=== PATIENT | male | born 1980 | race Caucasian/White ===

== ENCOUNTER 2020-09-23 10:15 | Emergency (ER) | payer OTHER, SELFPAY ==
[2020-09-23 10:50] VITALS: BP 145/96; PULSE 90; RESP 18; TEMP 36.6; O2SAT 98; O2SAT 99
--- NOTE | 2020-09-23 11:20 | ED.URI ---
HPI - URI/Sore Throat General Chief Complaint: Upper Respiratory Infection Stated Complaint: wants covid test/exposed Time Seen by Provider: 09/23/20 11:08 Source: patient Mode of arrival: ambulatory Limitations: no limitations History of Present Illness HPI Narrative: This is a 40-year-old male that presents to the emergency department for positive Covid exposure. Reports he was exposed to somebody that he works closely with. This was 4 days ago. Reports when he woke up this morning he felt achy. Also reports mild fatigue and rhinorrhea. Reports a cough, but this is chronic as he is a smoker. Denies fever, chest pain, shortness of breath. Related Data Home Medications Medication Instructions Recorded Confirmed No Home Medications 09/23/20 09/23/20 Allergies Allergy/AdvReac Type Severity Reaction Status Date / Time No Known Drug Allergies Allergy Unknown Unverified 11/07/15 14:18 Review of Systems Review of Systems: Narrative: CONSTITUTIONAL: Denies fever, chills ENT: Reports rhinorrhea. Denies congestion, sore throat, or otalgia. CARDIOVASCULAR: Denies chest pain RESPIRATORY: Reports cough. Denies dyspnea. MUSCULOSKELETAL: Reports myalgia. All systems reviewed & are unremarkable except as noted in HPI and below PMFSH Past Medical History Medical History (Updated 09/23/20 @ 12:33 by Helena Ruffin PA-C) No active medical problems Social History Social History (Updated 09/23/20 @ 11:21 by Helena Ruffin PA-C) Smoking status: Current every day smoker Gender identity (if verbalized by the patient): Male Exam Narrative: Exam Narrative: GENERAL: Well-appearing, well-nourished, and in no acute distress. HEAD: Normocephalic, atraumatic. EYES: EOMI. ENT: Nares clear, no rhinorrhea or epistaxis. Mucous membranes moist. Oropharynx without tonsillar hypertrophy exudate or other lesions. Bilateral TMs pearly quinones non-bulging NECK: Supple. No adenopathy or masses. CHEST: Clear to auscultation. No respiratory distress. No wheezes rales or rhonchi HEART: Regular rate and rhythm. No murmur heard. Normal peripheral pulses. EXTREMITIES: Normal range of motion. No edema. SKIN: Warm, dry, no rash. NEURO: No focal deficits. Alert and oriented x3. PSYCH: Normal mood and affect Course Vital Signs Vital signs: Vital Signs Temperature 97.8 F 09/23/20 10:50 Pulse Rate 90 09/23/20 10:50 Respiratory Rate 18 09/23/20 10:50 Blood Pressure 145/96 H 09/23/20 10:50 Pulse Oximetry 98 09/23/20 10:50 Temperature 97.8 F 09/23/20 10:50 Pulse Rate 78 09/23/20 12:07 Respiratory Rate 16 09/23/20 12:07 Blood Pressure 116/75 09/23/20 12:07 Pulse Oximetry 99 09/23/20 12:07 MDM - URI/Sore Throat MDM Narrative Medical decision making narrative: Patient presents the emergency department for Covid exposure 4 days ago. He is afebrile and nontoxic-appearing. Exam is benign. Oxygen saturation is remained normal on room air. He reported some mild symptoms upon awakening today which prompted him to be seen. Influenza screen is negative. SARS-CoV-2 was sent. Patient is stable and felt appropriate for further outpatient evaluation. Patient was instructed on care of viral infection. He is to follow-up with primary care doctor. He was given warnings to return to the ER Lab Data Attestation: I reviewed the patient's lab results. Labs: Lab Results 09/23/20 Range/Units 12:01 SARS-CoV-2 RNA (RT-PCR) Pending Influenza A Screen Negative Reference Range: Negative Influenza B Screen Negative Reference Range: Negative Critical Care Time Critical Care Time Critical Care Time: No Discharge Plan Discharge Clinical Impression: Person under investigation for severe acute respiratory syndrome coronavirus 2 (SARS-CoV-2) infection Patient Disposition: Home
[2020-09-23 12:07] VITALS: BP 116/75; PULSE 78; RESP 16; O2SAT 99
[2020-09-23 20:38] LABS: SARS-CoV-2 RNA PCR Negative
== END 2020-09-23 12:42 | disposition home or self-care (01) ==
PROVIDERS: Physician Assistant; Emergency Provider Family Medicine
DX: R53.83 Other fatigue (principal); J34.89 Other specified disorders of nose and nasal sinuses; Z20.822 Contact with and (suspected) exposure to COVID-19; F17.200 Nicotine dependence, unspecified, uncomplicated
CPT/HCPCS: 87804; 99283; C9803; U0003; U0005

== ENCOUNTER 2020-10-20 10:15 | Emergency (ER) | payer OTHER, SELFPAY ==
--- NOTE | ~2020-10-20 | XR_ITS ---
XR shoulder LT min 2V DATE: 10/20/2020 10:50 INDICATION: Straining injury. Pain at the superior aspect of the left shoulder. TECHNIQUE: 4 views COMPARISON: None FINDINGS: No fracture or dislocation, periosteal reaction or bone destruction or abnormal soft tissue calcification. Normal alignment at the acromioclavicular and glenohumeral joints. IMPRESSION: Negative Reviewed, dictated and finalized at location B. IMPRESSION: Negative
[2020-10-20 10:38] VITALS: BP 154/98; PULSE 105; RESP 16; TEMP 37.1; O2SAT 100
--- NOTE | 2020-10-20 11:02 | ED.GENADULT ---
HPI - General Adult General Chief complaint: Extremity Injury, Upper Stated complaint: LEFT SHOULDER PAIN Time Seen by Provider: 10/20/20 11:02 Source: patient and RN notes reviewed Mode of arrival: ambulatory Limitations: no limitations History of Present Illness HPI narrative: 40-year-old male presents with complaints of left shoulder pain after heavy lifting at work for the past 2 days. Vic reports left shoulder pain increases with activity. No treatment. Denies numbness or tingling. Hurts with movement of shoulder. Denies radiating pain. No loss of mobility. No swelling. Exacerbating factor is movement. Relieving factor is rest. The dominant hand is the RIGHT HAND. Remains active. The patient reports he have not been diagnosed with COVID-19. The patient reports he is not waiting for the results of a COVID-19 lab test. The patient reports he do not have fever, chills, weakness, or fatigue. The patient reports he do not have a new or worsening cough or shortness of breath. Denies chest pain. The patient reports he do not have any rhinorrhea, congestion, loss of taste or smell, sore throat, nausea, vomiting, abdominal pain, and diarrhea. Tolerating po intake well. Denies recent traveling. Denies concerns for COVID-19 or exposures been home with limited outdoor exposure except for essential household needs, work, and return home. At this time, patient is not suspected of having COVID-19. Some parts of this dictation were generated by voice recognition software and may contain typographical and/or grammatical inaccuracies. Related Data Home Medications Medication Instructions Recorded Confirmed ibuprofen 200 mg PO Q6H PRN 10/20/20 10/20/20 Allergies Allergy/AdvReac Type Severity Reaction Status Date / Time No Known Allergies Allergy Verified 10/20/20 11:11 Review of Systems Review of Systems: Narrative: CONSTITUTIONAL: Denies fever, chills, sweats. EYES: Denies visual changes, redness, discharge. ENT: Denies rhinorrhea, congestion, sore throat, otalgia. CARDIOVASCULAR: Denies chest pain, palpitations, edema. RESPIRATORY: Denies dyspnea, wheezing, cough. GASTROINTESTINAL: Denies abdominal pain, nausea, vomiting, diarrhea. SKIN: Denies rash or itching. MUSCULOSKELETAL: Denies acute back pain or myalgia. Complains of LT shoulder pain. NEUROLOGIC: Denies numbness or focal weakness. PSYCHIATRIC: Denies anxiety or depression. All other systems reviewed & are unremarkable except as noted in HPI and below. [facility] Past Medical History Medical History (Updated 10/24/20 @ 03:05 by ALVARO Kennedy) Tear of meniscus of left knee Surgical History Surgical History (Updated 10/20/20 @ 11:11 by ALVARO Kennedy) History of knee surgery Left -ACL and meniscus repair Family History Family History (Updated 10/20/20 @ 11:12 by ALVARO Kennedy) Father , Related to complications of diabetes Diabetes mellitus Mother Alive and well Social History Social History (Updated 10/20/20 @ 11:12 by ALVARO Kennedy) Smoking packs per day: 1 Smoking cigarettes per day: 20.0 Years smoked: 30 Smoking pack-years: 30.00 Smoking status: Current every day smoker Tobacco type: cigarettes Second hand tobacco smoke exposure: No Alcohol intake: current Substance use: never Living arrangements: with family Occupation/Education: occupation Gender identity (if verbalized by the patient): Male Comments At time of signature, agree with nurse past medical, surgical, social, and family history. There is no relevant family history pertinent to the presenting complaint. Exam Narrative: Exam Narrative: GENERAL: This is a well-nourished, well-developed patient, in no apparent distress. Talks in full sentences and ambulates with steady gait without dyspnea. HEAD: Normocephalic, atraumatic. EYES: PERRL. Sclera clear/white. Vision is grossly intact. THROAT: M
[2020-10-20 11:34] VITALS: BP 152/95; PULSE 88; RESP 20; O2SAT 99
== END 2020-10-20 11:36 | disposition home or self-care (01) ==
PROVIDERS: Emergency Provider Nurse Practitioner Family
DX: S43.402A Unspecified sprain of left shoulder joint, initial encounter (principal); X50.0XXA Overexertion from strenuous movement or load, initial encounter; Y99.0 Civilian activity done for income or pay; F17.210 Nicotine dependence, cigarettes, uncomplicated
CPT/HCPCS: 73030; 99213; G0463

== ENCOUNTER 2020-12-20 12:36 | Emergency (ER) | payer OTHER, SELFPAY ==
[2020-12-20 12:47] VITALS: BP 152/98; PULSE 94; RESP 18; TEMP 36.6; O2SAT 99
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
== END 2020-12-20 13:27 | disposition home or self-care (01) ==
PROVIDERS: Emergency Provider Nurse Practitioner
DX: S30.1XXA Contusion of abdominal wall, initial encounter (principal); S39.012A Strain of muscle, fascia and tendon of lower back, initial encounter; X58.XXXA Exposure to other specified factors, initial encounter; F17.210 Nicotine dependence, cigarettes, uncomplicated
CPT/HCPCS: 99213; G0463

== ENCOUNTER 2022-02-09 04:29 | Emergency (ER) | payer OTHER, SELFPAY ==
--- NOTE | ~2022-02-09 | CT_ITS ---
EXAMINATION: CT abdomen pelvis w con DATE: 02/09/2022 06:15 INDICATION: Generalized abdominal pain. TECHNIQUE: Computed tomography (CT) of the abdomen and pelvis was performed with 100 mL Omnipaque 300 intravenous contrast. Automated exposure control and iterative reconstruction technique were employe d. The dose-length product was 974.19 mGy-cm. COMPARISON: None. FINDINGS: The visualized portions of the lung bases demonstrate mild atelectasis. No pleural effusion . The heart size is normal. No pericardial effusion. There is diffuse hepatic steatosis. The gallblad slick, spleen, pancreas, adrenal glands, and right kidney are normal. There is a 15 mm cyst in left kid scotty. There is diverticulosis of the colon without evidence of diverticulitis. There are no dilated lo ops of bowel. The appendix is normal. There are no pathologically enlarged lymph nodes. There is no f ree intraperitoneal fluid. There is mild thoracolumbar spondylosis. IMPRESSION: 1. Diffuse hepatic steatosis. Reviewed, dictated and finalized at location A.
[2022-02-09 04:31] VITALS: BP 164/100; PULSE 54; RESP 16; TEMP 36.7; O2SAT 99
--- NOTE | 2022-02-09 05:31 | PC.NURSE ---
This RN tried to call pharmacy for morphine becuase ER pyxis out.
[2022-02-09 05:39] LABS: Basophils Absolute Auto 0.1 K/mm3 (0.0-0.1); Basophils Percent Auto 0.4 % (0.2-1.2); Eosinophils Percent Auto 0.4 % (0-4.4); Hematocrit 45.2 % (42.0-52.0); Hemoglobin 15.8 g/dL (14.0-18.0); Immature Granulocyte Absolute 0.08 K/mm3 (0.00-0.031); Immature Granulocyte Percent A 0.7 % (0-0.5); Lymphocytes Absolute Auto 0.92 K/mm3 (0.9-3.2); Lymphocytes Percent Auto 8.2 % (18.3-44.2); Mean Corpuscular Volume 91.7 fl (80-100); Monocytes Absolute Auto 0.6 K/mm3 (0.1-0.6); Monocytes Percent Auto 5.4 % (2.6-8.5); Neutrophils Absolute Auto 9.5 K/mm3 (1.3-6.7); Neutrophils Percent Auto 84.9 % (45.5-73.1); Platelet Count Result 208 k/mm3 (150-375); Red Blood Count 4.93 M/mm3 (4.6-6.20); Red Cell Distribution Width 12.9 % (11.5-14.5); White Blood Count 11.2 K/mm3 (4.5-10.0)
[2022-02-09 05:43] LABS: Appearance Urine Slightly Cloudy (Clear); Bilirubin Urine Negative (Negative); Blood Urine Negative (Negative); Color Urine Yellow (Yellow); Glucose Urine UA Negative (Negative); Ketones Urine Negative (Negative); Leukocyte Esterase Ur Negative LEU/UL (Negative); Nitrate Urine Negative (Negative); Protein Urine Negative (Negative); Specific Grav Ur >= 1.030 (1.001-1.035); Urobilinogen Urine 0.2 mg/dL (<2.0); pH Urine 5.5 (5.0-9.0)
[2022-02-09 05:48] LABS: Alanine Aminotransferase 54 U/L (6-50); Albumin Level 4.4 g/dL (3.5-5.1); Alkaline Phosphatase 78 U/L (38-126); Anion Gap 4 mmol/L (8-16); Aspartate Amino Transferase 30 U/L (17-59); Bilirubin,Total 0.2 mg/dL (0.2-1.3); Blood Urea Nitrogen 11 mg/dL (9-20); Calcium 8.6 mg/dL (8.4-10.2); Carbon Dioxide 27 mmol/L (22-30); Chloride 105 mmol/L (98-107); Estimated CRCL calculation 108 ml/min; Estimated Glomerular Filt Rate > 60; Glucose 167 mg/dL (65-110); Lipase 47 U/L (23-300); Mucus Urine Rare /lpf; Potassium 4.4 mmol/L (3.4-5.0); RBC Urine 0-2 /hpf (0-2); Sodium 136 mmol/L (137-145); Squamous Epithelial Cell Urine Rare /hpf (Few); WBC Urine 0-3 /hpf
[2022-02-09 05:53] LABS: Add Urine Microscopic? YES
--- NOTE | 2022-02-09 06:03 | ED.ABDPAIN ---
HPI - Abdominal Pain General Chief Complaint: Abdominal Pain Stated Complaint: ABD Pain Time Seen by Provider: 02/09/22 04:54 History of Present Illness HPI narrative: Patient is a 41-year-old male who presents ER with abdominal pain. Lower radiating to his back on both sides. No nausea or vomiting. No urinary frequency urgency or dysuria. Reports it feels like he needs to have a bowel movement but he cannot. He has been straining. Last bowel movement was just yesterday and was unremarkable. Related Data Allergies Allergy/AdvReac Type Severity Reaction Status Date / Time No Known Allergies Allergy Verified 02/09/22 04:33 Review of Systems Review of Systems: All systems reviewed & are unremarkable except as noted in HPI and below Constitutional: Constitutional: Denies chills, Denies fatigue and Denies fever(s) ENT: Denies nasal congestion and Denies sore throat Cardiovascular: Cardiovascular: Denies chest pain, Denies rapid heart rate and Denies radiating jaw, neck or arm pain Gastrointestinal: Gastrointestinal: Reports abdominal pain, Reports constipation, Denies nausea and Denies vomiting Genitourinary: Genitourinary: Denies oliguria, Denies dysuria and Denies urinary frequency PMFSH Past Medical History Medical History (Updated 02/09/22 @ 06:48 by Logan Tan MD) Tear of meniscus of left knee Surgical History Surgical History History of knee surgery Left -ACL and meniscus repair Family History Family History (Updated 10/20/20 @ 11:12 by ALVARO Kennedy) Father , Related to complications of diabetes Diabetes mellitus Mother Alive and well Social History Social History Smoking packs per day: 1 Smoking cigarettes per day: 20.0 Years smoked: 30 Smoking pack-years: 30.00 Smoking status: Current every day smoker Tobacco type: cigarettes Second hand tobacco smoke exposure: No Alcohol intake: current Substance use: never Gender identity (if verbalized by the patient): Male Exam Narrative: GENERAL: Well-appearing, well-nourished, and in no acute distress. HEAD: Normocephalic, atraumatic. ENT: Mucous membranes moist. CHEST: Clear to auscultation. No respiratory distress. HEART: Regular rate and rhythm. Normal peripheral pulses. ABDOMEN: Soft, nontender, nondistended, normal bowel sounds. EXTREMITIES: Normal range of motion. No edema. SKIN: Warm, dry, no rash. NEURO: Alert and oriented x3. PSYCH: Normal mood and affect. Course Course Emergency Course: Patient had some emesis while in the ER. Labs and imaging unremarkable. Will discharge with supportive medication. May developing a GI illness. Vital Signs Vital signs: Vital Signs Temperature 98.1 F 02/09/22 04:31 Pulse Rate 54 L 02/09/22 04:31 Respiratory Rate 16 02/09/22 04:31 Blood Pressure 164/100 H 02/09/22 04:31 Pulse Oximetry 99 02/09/22 04:31 Oxygen Delivery Room Air 02/09/22 04:31 Temperature 98.1 F 02/09/22 04:31 Pulse Rate 54 L 02/09/22 04:31 Respiratory Rate 16 02/09/22 04:31 Blood Pressure 164/100 H 02/09/22 04:31 Pulse Oximetry 99 02/09/22 04:31 Oxygen Delivery Room Air 02/09/22 04:31 MDM - Abdominal Pain Lab Data Result diagrams: 02/09/22 05:23 02/09/22 05:23 Labs: Lab Results 02/09/22 02/09/22 02/09/22 Range/Units 05:23 05:23 05:23 WBC 11.2 H (4.5-10.0) K/mm3 RBC 4.93 (4.6-6.20) M/mm3 Hgb 15.8 (14.0-18.0) g/dL Hct 45.2 (42.0-52.0) % MCV 91.7 (80-100) fl MCH 32.0 (26-34) pg MCHC 35.0 (32-36) g/dl RDW 12.9 (11.5-14.5) % Plt Count 208 (150-375) k/mm3 MPV 10.0 (7.4-10.4) fl Immature Gran % (Auto) 0.7 H (0-0.5) % Neut % (Auto) 84.9 H (45.5-73.1) % Lymph % (Auto) 8.2 L (18.3-44.2) % [place] % (Auto) 5.4 (2.6-8.5) % Eos %
--- NOTE | 2022-02-09 06:22 | PC.NURSE ---
Alem Penaloza RN called for pharmacist to bring down medications.
[2022-02-09] MEDS: MORPHINE SULFATE (*CRX) 4 MG/ML INJ IV PUSH (06:56)
[2022-02-09] MEDS: ONDANSETRON INJ 4 MG/2 ML VIAL IV PUSH (06:57)
[2022-02-09 07:07] VITALS: BP 136/86; PULSE 60; RESP 18; O2SAT 100
== END 2022-02-09 07:09 | disposition home or self-care (01) ==
PROVIDERS: Emergency Provider Emergency Medicine
DX: R10.30 Lower abdominal pain, unspecified (principal); F17.210 Nicotine dependence, cigarettes, uncomplicated; K76.0 Fatty (change of) liver, not elsewhere classified
CPT/HCPCS: 36415; 74177; 80053; 81001; 83690; 85025; 96374; 96375; 99284; J2270; J2405; Q9967

== ENCOUNTER 2022-04-21 11:24 | Emergency (ER) | payer OTHER, SELFPAY ==
[2022-04-21 11:32] VITALS: BP 140/100; PULSE 84; RESP 18; TEMP 36.3; O2SAT 100
--- NOTE | 2022-04-21 11:50 | ED.EAR ---
HPI - Ear Problem General Chief complaint: Ear Stated complaint: Both Ears Irritation Time Seen by Provider: 04/21/22 11:45 Source: patient, RN notes reviewed and old records reviewed Mode of arrival: ambulatory Limitations: no limitations History of Present Illness HPI Narrative: 42-year-old male who presents to the [facility] care with complaints of bilateral decreased hearing to ears and irritation since yesterday. Patient denies any acute pain to his ears just states they feel irritated. 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 Patient denies any sinus congestion or drainage, does use tobacco daily, reports he has smokers cough but denies any shortness of breath. MD Complaint: decreased hearing and other (ear irritation) Location: bilateral Treatment prior to arrival: none Related Data Home Medications Medication Instructions Recorded Confirmed No Home Medications 04/21/22 04/21/22 Allergies Allergy/AdvReac Type Severity Reaction Status Date / Time No Known Allergies Allergy Verified 04/21/22 11:36 Review of Systems Review of Systems: CONSTITUTIONAL: Denies fever, chills, or sweats. EYES: Denies visual changes, redness, or discharge. ENT: Denies rhinorrhea, congestion, sore throat, positive for bilateral ear irritation and decreased hearing CARDIOVASCULAR: Denies chest pain, palpitations, or edema. RESPIRATORY: report some dry cough denies any dyspnea. GASTROINTESTINAL: Denies abdominal pain, nausea, vomiting, or diarrhea. GENITOURINARY: Denies dysuria or hematuria. SKIN: Denies rash or itching. MUSCULOSKELETAL: Denies back pain, joint pain, or myalgia. NEUROLOGIC: Denies headache, numbness, or weakness. PSYCHIATRIC: Denies anxiety or depression. All systems reviewed & are unremarkable except as noted in HPI and below PMFSH Past Medical History Medical History Tear of meniscus of left knee Surgical History Surgical History History of knee surgery Left -ACL and meniscus repair Family History Family History Father , Related to complications of diabetes Diabetes mellitus Mother Alive and well Social History Social History Smoking packs per day: 1 Smoking cigarettes per day: 20.0 Years smoked: 30 Smoking pack-years: 30.00 Smoking status: Current every day smoker Tobacco type: cigarettes Second hand tobacco smoke exposure: No Alcohol intake: current Substance use: never Gender identity (if verbalized by the patient): Male Comments At time of signature, agree with nursing past medical, surgical, social and family history. There is no relevant family history pertinent to the presenting complaint Exam Narrative: GENERAL: Well-appearing, well-nourished, and in no acute distress. HEAD: Normocephalic, atraumatic. EYES: PERRLA and EOMI. ENT: Nares clear, no rhinorrhea or epistaxis. Mucous membranes moist.TM's completely occluded with black colored wax with decreased hearing verbalized, once irrigation completed TM;s normal with no irritation redness or excoriation of ear canals, throat with mild redness with no lesions or exudates, no swelling NECK: Supple. no lymphadenopathy CHEST: Clear to auscultation. No respiratory distress.some cough noted, denies any shortness of breath, SAO2 100% on room air HEART: Regular rate and rhythm. No murmur heard. Normal peripheral pulses. ABDOMEN: Soft, nontender, nondistended, normal active bowel sounds. EXTREMITIES: Normal range of motion. No edema. SKIN: Warm, dry, no rash. NEURO: No focal deficits. Alert and oriented x3. Course Course Level of Care: Express Care Visit Vital Signs Vital signs: Vital Signs Temperature 36.3 C L 04/21/22 11:32 Pulse Rate 84 09
== END 2022-04-21 12:15 | disposition home or self-care (01) ==
PROVIDERS: Emergency Provider Registered Nurse
DX: H61.23 Impacted cerumen, bilateral (principal); F17.210 Nicotine dependence, cigarettes, uncomplicated
CPT/HCPCS: 69209; 99212; G0463

== ENCOUNTER 2022-07-15 08:24 | Emergency (ER) | payer OTHER, SELFPAY ==
[2022-07-15 08:40] VITALS: BP 158/109; PULSE 88; RESP 16; TEMP 36.5; O2SAT 98
--- NOTE | 2022-07-15 09:12 | ED.EAR ---
HPI - Ear Problem General Chief complaint: Ear Stated complaint: ear pain Time Seen by Provider: 07/15/22 09:12 Source: patient, RN notes reviewed and old records reviewed Mode of arrival: ambulatory Limitations: no limitations History of Present Illness HPI Narrative: 42-year-old male presents to the [facility] with complaints of left ear fullness. States he feels like he has cerumen impaction again. Has been using the Debrox twice a week. Denies any other symptoms. No chest pain, abdominal pain, fevers, congestion, nasal congestion Patient is a smoker Related Data Allergies Allergy/AdvReac Type Severity Reaction Status Date / Time No Known Allergies Allergy Verified 07/15/22 09:04 Review of Systems Review of Systems: All systems reviewed & are unremarkable except as noted in HPI and below Constitutional: Constitutional: Reports no additional constitutional complaints Eyes: Eyes: Reports no additional eye complaints ENT: Reports as per HPI Cardiovascular: Cardiovascular: Reports no additional cardiovascular complaints, Denies chest pain and Denies dyspnea Respiratory: Respiratory: Reports no additional respiratory complaints, Denies chest congestion, Denies cough and Denies dyspnea Gastrointestinal: Gastrointestinal: Reports no additional gastrointestinal complaints, Denies abdominal pain, Denies nausea and Denies vomiting Musculoskeletal: Musculoskeletal: Reports no additional musculoskeletal complaints Integumentary/Breasts: Skin/Breast: Reports system reviewed and no additional complaints, except as docu Neurologic: Reports system reviewed and no additional complaints, except as documented Psychiatric: Psychiatric: Reports no additional psychiatric complaints Allergic/Immunologic: Allergic/Immunologic: Reports no additional allergic/immunologic complaints PMFSH Past Medical History Medical History Tear of meniscus of left knee Surgical History Surgical History History of knee surgery Left -ACL and meniscus repair Family History Family History Father , Related to complications of diabetes Diabetes mellitus Mother Alive and well Social History Social History Smoking packs per day: 1 Smoking cigarettes per day: 20.0 Years smoked: 30 Smoking pack-years: 30.00 Smoking status: Current every day smoker Tobacco type: cigarettes Second hand tobacco smoke exposure: No Alcohol intake: current Substance use: never Gender identity (if verbalized by the patient): Male Comments At the time of my signature, I reviewed and agree with the nursing past medical, surgical, social, and family history. There is no relevant family history pertinent to the patient complaint. Exam Const: General: cooperative, healthy appearing, comfortable, no acute distress, well developed, alert and well nourished Nutritional Appearance: well nourished Orientation/consciousness: patient oriented x3 Limitations: no limitations HENMT: Head: normal to inspection Ears: hearing grossly normal bilaterally, external ears normal, EAC's normal and TM abnormal wth effusion serous on the left Face/Nose/Sinus: Normal external nose present, Normal nares present, Normal nasal mucous membranes and turbinates present and normal facial exam Face and sinus: normal facial exam Mouth: Yes Normal oral and palatal mucosa present, Yes lip normal and Yes moist mucous membranes Throat: posterior oropharynx normal and uvula midline Eyes: General: appearance normal, both eyes and all related structures Alignment and Position: alignment normal Periorbital: periorbital findings normal Conjunctivae: conjunctivae normal Pupils: Equal, round and reactive pupils present EOM: EOMs intact bilaterally Neck: Ne
== END 2022-07-15 09:26 | disposition home or self-care (01) ==
PROVIDERS: Emergency Provider Nurse Practitioner
DX: H65.02 Acute serous otitis media, left ear (principal); F17.210 Nicotine dependence, cigarettes, uncomplicated
CPT/HCPCS: 99213; G0463

== ENCOUNTER 2022-12-16 08:16 | Emergency (ER) | payer OTHER, SELFPAY ==
[2022-12-16 08:24] VITALS: BP 153/106; PULSE 101; RESP 12; TEMP 37.2; O2SAT 98
--- NOTE | 2022-12-16 08:33 | ED.SKABFB ---
HPI - Skin/Abscess/Foreign Bdy General Chief complaint: Skin/Abscess/Foreign Body Stated complaint: swelling left ear lobe Time Seen by Provider: 12/16/22 08:33 Source: patient Mode of arrival: ambulatory Limitations: no limitations History of Present Illness HPI narrative: 42-year-old male presents with complaint of pain, swelling, redness to left earlobe For 2-3 days. patient reports history similar symptoms and was able to drain himself. States he tried to have his pot but was unable to. History of ear piercing to this ear. No other complaints today. All systems reviewed and negative except as noted above. Related Data Home Medications Medication Instructions Recorded Confirmed losartan 100 mg tablet 100 mg PO DAILY 12/16/22 12/16/22 Allergies Allergy/AdvReac Type Severity Reaction Status Date / Time No Known Allergies Allergy Verified 12/16/22 08:23 Review of Systems Review of Systems: CONSTITUTIONAL: Denies fever, chills, or sweats. EYES: Denies visual changes, redness, or discharge. ENT: Denies rhinorrhea, congestion, sore throat, or otalgia. CARDIOVASCULAR: Denies chest pain, palpitations, or edema. RESPIRATORY: Denies cough or dyspnea. GASTROINTESTINAL: Denies abdominal pain, nausea, vomiting, or diarrhea. GENITOURINARY: Denies dysuria or hematuria. SKIN: Denies rash or itching. Reports redness, pain and swelling to left ear lobe. MUSCULOSKELETAL: Denies back pain, joint pain, or myalgia. NEUROLOGIC: Denies headache, numbness, or weakness. PSYCHIATRIC: Denies anxiety or depression. All other systems reviewed are negative, except as documented in HPI. [facility] Past Medical History Medical History Tear of meniscus of left knee Surgical History Surgical History History of knee surgery Left -ACL and meniscus repair Family History Family History Father , Related to complications of diabetes Diabetes mellitus Mother Alive and well Social History Social History Smoking packs per day: 1 Smoking cigarettes per day: 20.0 Years smoked: 30 Smoking pack-years: 30.00 Smoking status: Current every day smoker Tobacco type: cigarettes Second hand tobacco smoke exposure: No Alcohol intake: current Substance use: never Living arrangements: with family Occupation/Education: occupation Gender identity (if verbalized by the patient): Male Comments At time of signature, agree with nursing past medical, surgical, social and family history. There is no relevant family history pertinent to the presenting complaint. Exam Narrative: GENERAL: This is a well-nourished, well-developed patient, in no apparent distress. HEAD: normocephalic, atraumatic. EYES: PERRL. Sclera clear/white. Vision is grossly intact. EARS: External ears normal NOSE: External nose normal NECK: Neck supple, non-tender without lymphadenopathy, masses or thyromegaly. CARDIOVASCULAR: Regular rate and rhythm without murmurs, gallops, or rubs. RESPIRATORY: Clear to auscultation. Breath sounds equal bilaterally. No wheezes, rales, or rhonchi. SKIN: warm, Dry, intact with no suspicious lesions or rash, good texture and turgor. small abscess to posterior aspect lobule of L ear. fluctuance, erythematous, tender. no drainage NEURO: awake, alert, and oriented to person, place and time. There were no obvious focal neurologic abnormalities. EXTREMITIES: No joint tenderness, effusion, or edema noted. Course Course Level of Care: Express Care Visit Vital Signs Vital signs: Vital Signs Temperature 37.2 C 12/16/22 08:24 Pulse Rate 101 H 12/16/22 08:24 Respiratory Rate 12 12/16/22 08:24 Blood Pressure 153/106 H 12/16/22 08:24 Pulse Oximetry 98 12/16/22 08:24
== END 2022-12-16 08:51 | disposition home or self-care (01) ==
PROVIDERS: Emergency Provider Nurse Practitioner Family
DX: H60.02 Abscess of left external ear (principal); F17.210 Nicotine dependence, cigarettes, uncomplicated
CPT/HCPCS: 10160; 87070; 87205; 99213; G0463

== ENCOUNTER 2024-05-20 19:54 | Emergency (ER) | payer SELFPAY ==
[2024-05-20 20:03] VITALS: BP 141/85; PULSE 87; RESP 20; TEMP 36.8; O2SAT 98
--- NOTE | 2024-05-20 20:20 | PC.NURSE ---
2015: Pt came to this RN stating he did not want to stay and be seen. Asked for SL to be removed. with pt, states she is driving & will return if needed.
== END 2024-05-20 21:26 | disposition left against medical advice (07) ==
LOC: ANHED 20:55
DX: R52 Pain, unspecified (principal); Z86.16 Personal history of COVID-19
CPT/HCPCS: 99199